=== PATIENT | male | born 1975 | race Caucasian/White ===

== ENCOUNTER 2025-02-17 10:11 | Observation (INO) | payer OTHER ==
[~2025-02-17] VITALS: Ht 167.6 cm; Wt 81.6 kg
[2025-02-17 10:31] VITALS: TEMP 98.2
[2025-02-17 10:53] LABS: BASOPHILS % 0.4 % (0.0-1.0); EOSINOPHILS % 1.8 % (0.0-6.0); LYMPHOCYTES % 20.6 % (18.0-39.1); MONOCYTES % 8.9 % (4.4-11.3); NEUTROPHILS % 68.0 % (38.7-80.0); RED CELL DISTRIBUTION WIDTH 13.9 % (11.7-14.4)
[2025-02-17 11:11] LABS: EST GLOMERULAR FILTRATION RATE 105.0 ML/MIN (>=60)
[2025-02-17] MEDS: Morphine 4mg INJECTION 4 MG/ML INJ IV PRN (11:49)
[2025-02-17] MEDS: SODIUM CHLORIDE 0.9% 1000ML 1,000 ML IV SCH (11:49)
[2025-02-17] MEDS: ONDANSETRON HCL INJ 2MG/ML 2ML 2 MG/ML VIAL IV PRN (11:50)
[2025-02-17 12:00] VITALS: PULSE 90; RESP 18
[2025-02-17 12:15] VITALS: BP 121/74; PULSE 61; RESP 18; TEMP 98.2; O2SAT 96
[2025-02-17 12:30] VITALS: BP 122/74; PULSE 61; RESP 18; TEMP 98.2; O2SAT 96
[2025-02-17 16:00] VITALS: BP 132/81; PULSE 70; RESP 18; TEMP 98; O2SAT 96
[2025-02-17] MEDS: TRAMADOL HCL 50 MG TAB PO PRN (17:14)
[2025-02-17 20:00] VITALS: BP 123/84; PULSE 70; RESP 18; TEMP 97.8; O2SAT 98
[2025-02-18] VITALS: BP 97/59; PULSE 55; RESP 18; TEMP 98.1; O2SAT 98
[2025-02-18] MEDS ORDERED: LYRICA150 MG PO (03:25)
[2025-02-18] MEDS ORDERED: BACLOFEN10 MG PO (03:26)
[2025-02-18] MEDS ORDERED: IBUPROFEN400 MG PO (03:28)
[2025-02-18] MEDS ORDERED: OMEPRAZOLE40 MG PO (03:30)
[2025-02-18] MEDS ORDERED: WELLBUTRIN SR150 MG PO (03:31)
[2025-02-18] MEDS ORDERED: SEROQUEL25 MG PO (03:32)
[2025-02-18] MEDS ORDERED: FLECAINIDE ACE100 MG PO (03:35)
[2025-02-18] MEDS ORDERED: SEROQUEL100 MG PO (03:35)
[2025-02-18] MEDS ORDERED: ONDANSETRON ODT8 MG PO (03:41)
[2025-02-18 04:00] VITALS: BP 106/65; PULSE 52; RESP 18; TEMP 97.6; O2SAT 96
[2025-02-18 08:35] VITALS: BP 128/79; PULSE 60; RESP 18; TEMP 97.8; O2SAT 97
[2025-02-18 08:37] LABS: BASOPHILS % 0.3 % (0.0-1.0); EOSINOPHILS % 0.9 % (0.0-6.0); LYMPHOCYTES % 13.7 % (18.0-39.1); MONOCYTES % 8.3 % (4.4-11.3); NEUTROPHILS % 76.5 % (38.7-80.0); RED CELL DISTRIBUTION WIDTH 14.3 % (11.7-14.4)
[2025-02-18 08:59] LABS: EST GLOMERULAR FILTRATION RATE 108.0 ML/MIN (>=60)
[2025-02-18 09:00] VITALS: BP 128/79; PULSE 60; RESP 18; TEMP 97.8; O2SAT 97
[2025-02-18 11:57] VITALS: BP 133/79; PULSE 70; RESP 18; TEMP 97.5; O2SAT 98
== END 2025-02-18 12:07 | disposition home or self-care (01) ==
LOC: ER 10:26 → ERHOLD 11:11 → MED/SURG3 13:12
PROVIDERS: ADMIT Internal Medicine; ATTEND Internal Medicine
DX: S81.812A Laceration without foreign body, left lower leg, initial encounter (principal); M79.662 Pain in left lower leg; X58.XXXA Exposure to other specified factors, initial encounter; Y92.019 Unspecified place in single-family (private) house as the place of occurrence of the external cause; Y93.H9 Activity, other involving exterior property and land maintenance, building and construction
CPT/HCPCS: 36415 ×2; 80048; 80053; 85025 ×2; 99283; G0378 ×2; J2270; J2405; J7030